=== PATIENT | male | born 1970 | race Caucasian/White ===

== ENCOUNTER 2023-10-06 15:28 | Emergency (ER) | payer SELFPAY ==
[2023-10-06 15:44] VITALS: BP 146/90; RESP 20; TEMP 97.9; O2SAT 97
--- NOTE | 2023-10-06 15:55 | ERPHSYRPT ---
- History of Present Illness Time Seen by Provider: 10/06/23 15:53 Source: patient, family Exam Limitations: no limitations Patient Subjective Stated Complaint: Allergic reaction Triage Nursing Assessment: Patient ambulated back to ED and transferred self to bed. Patient A+O X3. Patient's skin flushed, warm and dry. Patient's here with daughter and daughter states patient cannot read or write. Patient states he went to be just fine and woke up and his pola hands were swollen and pola eyes were swollen. Patient's pola arms noted to be warm, red and swollen, chest, neck and pola eyes. Patient denies pain or discomfort. Physician History: Patient's here with daughter and daughter states patient cannot read or write. Patient states he went to be just fine and woke up and his both hands were swollen and both eyes were swollen. Patient's pola arms noted to be warm, red and swollen, chest, neck and pola eyes. Patient denies pain or discomfort. Timing/Duration: today Severity: moderate Associated Symptoms: rash Allergies/Adverse Reactions: No Known Drug Allergies Allergy (Unverified 10/06/23 15:33) Hx Influenza Vaccination/Date Given: No Hx Pneumococcal Vaccination/Date Given: No Immunizations Up to Date: Yes Travel Risk - International Travel Have you traveled outside of the country in past 3 weeks: No - Emerging Infectious Disease Are you exhibiting symptoms associated with any current EIDs: No - Review of Systems Constitutional: No Fever, No Chills Eyes: Eye Redness, Itchy Ears, Nose, & Throat: No Symptoms Respiratory: No Cough, No Dyspnea Cardiac: No Chest Pain, No Edema, No Syncope Abdominal/Gastrointestinal: No Abdominal Pain, No Nausea, No Vomiting, No Diarrhea Genitourinary Symptoms: No Dysuria Musculoskeletal: No Back Pain, No Neck Pain Skin: Cellulitis (left forearm), Pruritis, Rash Neurological: No Dizziness, No Focal Weakness, No Sensory Changes Psychological: No Symptoms Endocrine: No Symptoms All Other Systems: Reviewed and Negative - Past Medical History Pertinent Past Medical History: No Neurological History: No Pertinent History ENT History: No Pertinent History Cardiac History: No Pertinent History Respiratory History: No Pertinent History Endocrine Medical History: No Pertinent History Musculoskeletal History: No Pertinent History GI Medical History: No Pertinent History History: No Pertinent History Psycho-Social History: No Pertinent History Male Reproductive Disorders: No Pertinent History - Past Surgical History Past Surgical History: No Neuro Surgical History: No Pertinent History Cardiac: No Pertinent History Respiratory: No Pertinent History Gastrointestinal: No Pertinent History Genitourinary: No Pertinent History Musculoskeletal: No Pertinent History Male Surgical History: No Pertinent History - Social History Smoking Status: Current every day smoker How long have you smoked: years Exposure to second hand smoke: No Drug Use: marijuana - Nursing Vital Signs Nursing Vital Signs: Initial Vital Signs Temperature 97.9 F 10/06/23 15:34 Pulse Rate 93 H 10/06/23 15:34 Respiratory Rate 20 10/06/23 15:34 Blood Pressure 146/90 10/06/23 15:34 O2 Sat by Pulse Oximetry 97 10/06/23 15:34 Pain Scale Pain Intensity 0 - Physical Exam General Appearance: no apparent distress, alert Eye Exam: PERRL/EOMI, eyes nml inspection Ears, Nose, Throat Exam: normal ENT inspection, TMs normal, pharynx normal, moist mucous membranes Neck Exam: normal inspection, non-tender, supple, full range of motion Respiratory Exam: wheezing, No respiratory distress Cardiovascular Exam: regular rate/rhythm, normal heart sounds, normal peripheral pulses Gastrointestinal/Abdomen Exam: soft, normal bowel sounds, No tenderness, No mass Back Exam: normal inspection, normal range of motion, No CVA tenderness, No vertebral tenderness Extremity Exam: normal inspection, normal range of motion, pelvis stable Neurologic Exam: alert, oriented x 3, cooperative, normal mood/affect, nml cerebellar function, nml station & gait, sensation nml, No motor deficits Skin Exam: normal color, warm, dry, rash Lymphatic Exam: No adenopathy SpO2: 97 - Course Nursing assessment & vital signs reviewed: Yes Ordered Tests: Active Orders 24 hr Category Date Time Status CBC W DIFF Stat Lab 10/06/23 15:55 Completed CMP Stat Lab 10/06/23 15:55 Completed Medication Summary Generic Name Dose Route Start Last Admin Trade Name Freq PRN Reason Stop Dose Admin Ceftriaxone Sodium 1 gm in 100 mls @ 200 mls/hr 10/06/23 16:05 10/06/23 16:06 Rocephin 1 Gm / 100 Ml Nacl IV 10/06/23 16:34 200 mls/hr STAT ONE 200 mls/hr Administration Discontinued Medications Generic Name Dose Route Start Last Admin Trade Name Freq PRN Reason Stop Dose Admin Ceftriaxone Sodium 1,000 mg 10/06/23 15:50 10/06/23 16:04 Ceftriaxone Sodium 1000 Mg Inj Vial IM 10/06/23 15:51 Not Given STAT ONE Methylprednisolone Sodium 0 mg 10/06/23 15:50 10/06/23 15:58 Succinate 125 mg/ Sterile IV 10/06/23 15:51 125 mg Water 2 ml STAT ONE Administration Diphenhydramine HCl 25 mg 10/06/23 15:50 10/06/23 15:57 Diphenhydramine Hcl 50 Mg/Ml Vial IV 10/06/23 15:51 25 mg STAT ONE Administration Diphenhydramine HCl Confirm 10/06/23 15:57 Diphenhydramine Hcl 50 Mg/Ml Vial Administered 10/06/23 15:58 Dose 50 mg .ROUTE .STK-MED ONE Ceftriaxone Sodium Confirm 10/06/23 16:04 Rocephin 1 Gm / 100 Ml Nacl Administered 10/06/23 16:05 Dose 1 gm in 100 mls @ ud IV .STK-MED ONE Methylprednisolone Sodium Succinate Confirm 10/06/23 15:57 Methylprednis Sod Succ 125 Mg/2 Ml Vial Administered 10/06/23 15:58 Dose 125 mg .ROUTE .STK-MED ONE Sterile Water Confirm 10/06/23 15:57 Water For Injection,Sterile 10 Ml Vial Administered 10/06/23 15:58 Dose 10 ml IJ .STK-MED ONE Lab/Rad Data: Laboratory Result Diagrams 10/06/23 15:55 10/06/23 15:55 Laboratory Results 10/06/23 10/06/23 Range/Units 15:55 15:55 WBC 11.2 H (4.0-10.5) x10^3/uL RBC 4.94 (4.1-5.6) x10^6/uL Hgb 15.6 (12.5-18.0) g/dL Hct 44.4 (42-50) % MCV 89.9 (78-100) fL MCH 31.6 (26-32) pg MCHC 35.1 (32-36) g/dL RDW 12.9 (11.5-14.0) % Plt Count 288 (150-450) x10^3/uL MPV 8.5 (7.5-11.0) fL Gran % 70.7 H (36.0-66.0) % Immature Gran % (Auto) 0.4 (0.00-0.4) % Nucleat RBC Rel Count 0.0 (0.00-0.1) % Eos # (Auto) 0.54 H (0-0.5) x10^3/uL Immature Gran # (Auto) 0.04 H (0.00-0.03) x10^3u/L Absolute Lymphs (auto) 1.96 (1.0-4.6) x10^3/uL Absolute Monos (auto) 0.71 (0.0-1.3) x10^3/uL Absolute Nucleated RBC 0.00 (0.00-0.01) x10^3u/L Lymphocytes % 17.5 L (24.0-44.0) % Monocytes % 6.3 (0.0-12.0) % Eosinophils % 4.8 (0.00-5.0) % Basophils % 0.3 (0.0-0.4) % Absolute Granulocytes 7.92 H (1.4-6.9) x10^3/uL Basophils # 0.03 (0-0.4) x10^3/uL Sodium 131 L (135-145) mmol/L Potassium 4.1 (3.5-5.1) mmol/L Chloride 99 (98-107) mmol/L Carbon Dioxide 19 L (22-30) mmol/L Anion Gap 17.2 H (5-15) MEQ/L BUN 12 (9-20) mg/dL Creatinine 0.82 (0.66-1.25) mg/dL Estimated GFR 104.4 ML/MIN Glucose 99 (74-106) mg/dL Calcium 8.7 (8.4-10.2) mg/dL Total Bilirubin 1.50 H (0.2-1.3) mg/dL AST 29 (17-59) U/L ALT 16 (0-50) U/L Alkaline Phosphatase 45 (38-126) U/L Serum Total Protein 7.8 (6.3-8.2) g/dL Albumin 4.4 (3.5-5.0) g/dL - Progress Progress: improved Counseled pt/family regarding: lab results, diagnosis, need for follow-up Medical Desision Making - Independent Historian Additional History obtained from: Family - Diagnostic Testing Diagnostic test were ordered, analyzed, and reviewed by me: Yes - Risk of complications Minimal Risk: Minimal risk of morbidity - Departure Departure Disposition: Home Clinical Impression: Allergic dermatitis, Cellulitis of forearm, left Condition: Stable Critical Care Time: No Instructions: Contact dermatitis, Contact Dermatitis (DC), Cellulitis (Skin Infection), Adult ED Additional Instructions: Discharge/Care Plan LISSETTE ALEJANDRO was seen on 10/06/23 in the Emergency Room. The patient was counseled regarding Diagnosis,Lab results, Imaging studies, need for follow up and when to return to the Emergency Room. Prescriptions given: Discharge Note I have spoken with the patient and/or caregivers. I have explained the patient's condition, diagnosis and treatment plan based on the information available to me at this time. I have answered the patient's and/or caregiver's questions and addressed any concerns. The patient and/or caregivers have as good understanding of the patient's diagnosis, condition and treatment plan as can be expected at this point. The vital signs have been stable. The patient's condition is stable and appropriate for discharge from the emergency department. The patient will pursue further outpatient evaluation with the primary care physician or other designated or consulting physician as outlined in the discharge instructions. The patient and/or caregivers are agreeable to this plan of care and follow-up instructions have been explained in detail. The patient and/or caregivers have received these instruction. The patient/and or caregivers are aware that any significant change in condition or worsening of symptoms should prompt an immediate return to this or the closest emergency department or call 911. LISSETTE ALEJANDRO was seen on 10/06/23 n the Emergency Room. At that time you were treated for an emergent condition, during your visit Laboratory, Radiology and/or other procedures may have been ordered. It is very important that you follow-up with your Primary Care Physician within the next 24-48 hours to review your Emergency Room visit and the final results of testing that was ordered. Some test results such as Urine Cultures, Blood Cultures, and other cultures if ordered will not be finalized for 24-48 hours. If you do not have a Primary Care Provider please call the medical records department at [phone] ext [phone] to obtain a copy of your results or you may sign into our patient portal to obtain these results by visiting us @ [email or web address] and completing the following steps: 1. Click on the Patient Portal link 2. Click the Patient Self Enrollment Link to complete the enrollment form and entering your 3. Once the enrollment form is completed you will receive an email with a temporary ID and password at the email address you provided. 4. Next choose a user name and password. Your user name must be at least 4 characters long and your password must be at least 4 characters long. 5. Choose a security question from the list and provide your answer to the question. If you already have signed into the Health Portal you may access your Health Care Information 24/12 by the following steps: 1. Login to our website @ [email or web address] 2. Enter your original user name and password. FAQS The [facility] Health Portal is an online tool that contains your Lab Results, Radiology Reports, Visit History, Discharge Instructions and Health Summary Lab and Radiology Results will not be available for 72 hours on the portal. The Portal is a secure site, passwords are encryted and URLs are re-written so they cannot be copied and pasted. You and authorized family members are the only ones who can access your Portal. Also there is a timeout feature that protects your information if you leave the Portal page open. If you have technical difficulty please use the Contact Us link on the page this will allow you to submit any questions you have regarding the Portal or you may contact the Medical Record Department at [phone]. Prescriptions: Cephalexin Mh 500 mg [Keflex 500 mg] 500 mg PO Q6H #40 cap Triamcinolone 0.1% Cream [Kenalog 0.1% Cream 15 gm] 1 gm TP QID #60 cm Methylprednisolone Packet [Medrol Dosepack] 4 mg PO UD #21 packet
[2023-10-06] MEDS ORDERED: solu-MEDROL ONE (15:57)
[2023-10-06] MEDS ORDERED: Sterile H2O 10 ml IJ ONE (15:57)
[2023-10-06] MEDS ORDERED: BENADRYL 50 MG/ML ONE (15:57)
[2023-10-06] MEDS: BENADRYL 50 MG/ML IV ONE (15:57)
[2023-10-06] MEDS: solu-MEDROL 125 MG, Sterile H2O 10 ml 2 ML IV ONE (15:58)
[2023-10-06 16:02] LABS: Absolute Neutrophil Ct (ANC) 7.92 x10^3/uL (1.4-6.9); BASOPHIL % 0.3 % (0.0-0.4); Basophil (Absolute #) 0.03 x10^3/uL (0-0.4); Eosinophil % 4.8 % (0.00-5.0); Eosinophil (Absolute #) 0.54 x10^3/uL (0-0.5); Hematocrit 44.4 % (42-50); Hemoglobin 15.6 g/dL (12.5-18.0); IMMATURE GRAN # 0.04 x10^3u/L (0.00-0.03); IMMATURE GRAN % 0.4 % (0.00-0.4); Lymphocyte (Absolute #) 1.96 x10^3/uL (1.0-4.6); Lymphocytes % 17.5 % (24.0-44.0); Mean Cell Volume 89.9 fL (78-100); Mean Corpuscular Hemoglobin 31.6 pg (26-32); Mean Corpuscular Hgb Concent. 35.1 g/dL (32-36); Mean Platelet Volume 8.5 fL (7.5-11.0); Monocyte (Absolute #) 0.71 x10^3/uL (0.0-1.3); Monocytes % 6.3 % (0.0-12.0); Neutrophil % 70.7 % (36.0-66.0); Platelet Count 288 x10^3/uL (150-450); Red Blood Count 4.94 x10^6/uL (4.1-5.6); Red Cell Distribution Width 12.9 % (11.5-14.0); White Blood Count 11.2 x10^3/uL (4.0-10.5)
[2023-10-06] MEDS: Rocephin 1000 MG INJ IM ONE (16:04)
[2023-10-06] MEDS ORDERED: ROCEPHIN 1 GM / 100 ML NaCl 1 GM/100 ML IVPB IV ONE (16:04)
[2023-10-06] MEDS: ROCEPHIN 1 GM / 100 ML NaCl 1 GM/100 ML IVPB IV ONE (16:06)
[2023-10-06 16:15] LABS: ALBUMIN 4.4 g/dL (3.5-5.0); ANION GAP 17.2 MEQ/L (5-15); BILIRUBIN,TOTAL 1.5 mg/dL (0.2-1.3); Calcium 8.7 mg/dL (8.4-10.2); Creatinine 1 0.82 mg/dL (0.66-1.25); EST GLOMERULAR FILTRATION RATE 104.4 ML/MIN; Potassium 4.1 mmol/L (3.5-5.1); Total Protein 7.8 g/dL (6.3-8.2)
[2023-10-06 16:41] VITALS: PULSE 90
== END 2023-10-06 17:02 | disposition home or self-care (01) ==
LOC: ED 15:28
DX: L23.9 Allergic contact dermatitis, unspecified cause (principal); L03.114 Cellulitis of left upper limb; Z79.52 Long term (current) use of systemic steroids; Z79.899 Other long term (current) drug therapy; Z72.0 Tobacco use
CPT/HCPCS: 36000; 36415; 80053; 85025; 96365; 96374; 96375; 99283; J0696; J1200; J2919

== ENCOUNTER 2024-07-09 13:02 | Emergency (ER) | payer OTHER ==
[2024-07-09 13:14] VITALS: TEMP 99.3
--- NOTE | 2024-07-09 13:25 | ERPHSYRPT ---
- History of Present Illness Time Seen by Provider: 07/09/24 13:03 Historian: patient, family Exam Limitations: no limitations Patient Subjective Stated Complaint: PT HERE FOR CHEST PAIN 2 WEEKS AGO, AND PAIN TO UNDER LEFT RIB AREA, HE STATES HE HAS BEEN RUNNING A LOW GRADE FEVER,GREEN SPUTUM. PT DOES NOT GO TO DR Triage Nursing Assessment: PT ALERT,ARRIVED PER WC RESP EASY, PRODUCTIVE COUGH,WHITE THICK SPUTUM, SKIN W/D/P. NOSE PURPLE IN COLOR, CHEST CLEAR, ABD SOFT, NO EDEMA NOTED Physician History: 54-year-old male with history of tobacco use is sent in ER from [facility] with complaints of left-sided chest pain sharp stabbing earlier which improved after taking BC powder prior to arrival. Patient is chest pain-free currently. Reports having off-and-on chest pain for the last 2 weeks. Also reports 2-week history of increasing cough productive of yellow-green sputum moderate in amount without any difficulty breathing but does feel weak fatigued and tired all the time. He has no energy to do his routine activities. Patient reports subjective feeling of fever and chills with a Tmax of 100.8 earlier today at [facility]. Patient denies any abdominal pain nausea or vomiting. Patient has not seen a physician for a while. Reports decreased oral intake and weight loss unknown amount. Aspirin Treatment Today: unknown Allergies/Adverse Reactions: No Known Drug Allergies Allergy (Verified 07/09/24 13:08) Hx Tetanus, Diphtheria Vaccination/Date Given: No Hx Influenza Vaccination/Date Given: No Hx Pneumococcal Vaccination/Date Given: No Immunizations Up to Date: Yes Travel Risk - International Travel Have you traveled outside of the country in past 3 weeks: No - Emerging Infectious Disease Are you exhibiting symptoms associated with any current EIDs: No - Review of Systems Constitutional: Fever, Chills, Fatigue, Weakness Eyes: No Symptoms Ears, Nose, & Throat: No Symptoms Respiratory: Cough, Wheezing Cardiac: Chest Pain Abdominal/Gastrointestinal: No Symptoms Genitourinary Symptoms: No Symptoms Skin: No Symptoms Neurological: No Symptoms Endocrine: No Symptoms Hematologic/Lymphatic: No Symptoms - Past Medical History Pertinent Past Medical History: No Neurological History: No Pertinent History ENT History: No Pertinent History Cardiac History: No Pertinent History Respiratory History: No Pertinent History Endocrine Medical History: No Pertinent History Musculoskeletal History: No Pertinent History GI Medical History: No Pertinent History History: No Pertinent History Psycho-Social History: No Pertinent History Male Reproductive Disorders: No Pertinent History - Past Surgical History Past Surgical History: No Neuro Surgical History: No Pertinent History Cardiac: No Pertinent History Respiratory: No Pertinent History Gastrointestinal: Hernia Repair Genitourinary: No Pertinent History Musculoskeletal: No Pertinent History Male Surgical History: No Pertinent History - Social History Smoking Status: Current every day smoker How long have you smoked: years Exposure to second hand smoke: Yes Drug Use: marijuana - Social Determinants of Health Will the patient participate in the screening: Yes Do you worry about a steady place to live?: No Do you have any problems with any of the following?: No known problems In the past 12 months,have you had to go without utilities?: No Transportation Issues: No Has anyone in your support network made you feel unsafe?: No Have you or anyone in your house had to go without enough: No - Nursing Vital Signs Nursing Vital Signs: Initial Vital Signs Pulse Rate 72 07/09/24 13:09 Pain Scale Pain Intensity 0 - Physical Exam General Appearance: no apparent distress, alert Eye Exam: PERRL/EOMI Ears, Nose, Throat Exam: normal ENT inspection, TMs normal, pharynx normal, eileen st mucous membranes Neck Exam: normal inspection, non-tender, supple, full range of motion Respiratory Exam: diminished breath sounds, crackles/rales, wheezing Cardiovascular Exam: regular rate/rhythm, normal heart sounds Gastrointestinal/Abdomen Exam: soft, normal bowel sounds, No tenderness Back Exam: normal inspection, normal range of motion Extremity Exam: normal inspection, normal range of motion Neurologic Exam: alert, oriented x 3, cooperative, sales activity manager II-XII nml as tested, sensation nml, No motor deficits SpO2 Interpretation: normal SpO2: 96 O2 Delivery: Room Air - Course EKG Interpreted by Me: RATE (60), Sinus Rhythm, NORMAL AXIS, NORMAL INTERVALS, Q-wave, Non-specific ST Changes Ordered Tests: Active Orders 24 hr Category Date Time Status CHEST 1 VIEW (PORTABLE) Stat Exams 07/09/24 13:20 Completed CHEST WITH CONTRAST [CT] Stat Exams 07/09/24 15:25 Completed BLOOD CULTURE Stat Lab 07/09/24 13:43 Received CBC W DIFF Stat Lab 07/09/24 13:30 Completed CMP Stat Lab 07/09/24 13:30 Completed D-DIMER QUANTITATIVE Stat Lab 07/09/24 13:36 Completed Lactic Acid Stat Lab 07/09/24 13:20 Completed MAGNESIUM Stat Lab 07/09/24 13:30 Completed NT PRO BNPII Stat Lab 07/09/24 13:30 Completed PROCALCITONIN Stat Lab 07/09/24 13:30 Completed TROPONIN Q4H Lab 07/09/24 13:30 Completed TROPONIN Q4H Lab 07/09/24 15:16 Completed Respiratory Therapy Assessment DAILY RT 07/09/24 13:55 Completed Medication Summary Discontinued Medications Generic Name Dose Route Start Last Admin Trade Name Darylq PRN Reason Stop Dose Admin Albuterol/Ipratropium 3 ml 07/09/24 13:20 07/09/24 13:52 Ipratropium/Albuterol Sulfate 3 Ml Ampul.Neb IH 07/09/24 13:21 3 ml STAT ONE Administration Albuterol/Ipratropium Confirm 07/09/24 13:39 Ipratropium/Albuterol Sulfate 3 Ml Ampul.Neb Administered 07/09/24 13:40 Dose 3 ml IH .STK-MED ONE Ceftriaxone Sodium 2 gm in 100 mls @ 200 mls/hr 07/09/24 14:40 07/09/24 15:56 Rocephin 2 Gm/100 Ml Nacl IV 07/09/24 15:09 Infused STAT ONE Infusion Azithromycin 500 mg in 250 mls @ 250 mls/hr 07/09/24 14:40 07/09/24 17:22 Zithromax 500 Mg/ 250 Ml Nacl Premix IV 07/09/24 15:39 Infused STAT STA Infusion Ceftriaxone Sodium Confirm 07/09/24 14:52 Rocephin 2 Gm/100 Ml Nacl Administered 07/09/24 14:53 Dose 2 gm in 100 mls @ ud IV .STK-MED ONE Azithromycin Confirm 07/09/24 15:29 Zithromax 500 Mg/ 250 Ml Nacl Premix Administered 07/09/24 15:30 Dose 500 mg in 250 mls @ ud IV .STK-MED ONE Lab/Rad Data: Laboratory Result Diagrams 07/09/24 13:30 07/09/24 13:30 Laboratory Results 07/09/24 07/09/24 07/09/24 Range/Units 15:16 13:36 13:30 WBC (4.23-9.07) x10^3/uL RBC (4.63-6.08) x10^6/uL Hgb (13.7-17.5) g/dL Hct (40.1-51.0) % MCV (79.0-92.2) fL MCH (25.7-32.2) pg MCHC (32.3-36.5) g/dL RDW (11.6-14.4) % Plt Count (163-337) x10^3/uL MPV (9.4-12.4) fL Gran % (34.0-67.9) % Immature Gran % (Auto) (0.001-0.429) % Nucleat RBC Rel Count (0.00-0.2) % Eos # (Auto) (0.04-0.54) x10^3/uL Immature Gran # (Auto) (0.001-0.031) x10^3u/L Absolute Lymphs (auto) (1.32-3.57) x10^3/uL Absolute Monos (auto) (0.30-0.82) x10^3/uL Absolute Nucleated RBC (0.00-0.012) x10^3u/L Lymphocytes % (21.8-53.1) % Monocytes % (5.3-12.2) % Eosinophils % (0.8-7.0) % Basophils % (0.2-1.2) % Absolute Granulocytes (1.78-5.38) x10^3/uL Basophils # (0.01-0.08) x10^3/uL D-Dimer 0.56 H (0.0-0.50) mg/L Sodium (135-145) mmol/L Potassium (3.5-5.1) mmol/L Chloride (98-107) mmol/L Carbon Dioxide (22-30) mmol/L Anion Gap (5-15) MEQ/L BUN (9-20) mg/dL Creatinine (0.66-1.25) mg/dL Estimated GFR ML/MIN Glucose (74-106) mg/dL Lactic Acid (0.4-2.0) Calcium (8.4-10.2) mg/dL Magnesium (1.6-2.3) mg/dL Total Bilirubin (0.2-1.3) mg/dL AST (17-59) U/L ALT (0-50) U/L Alkaline Phosphatase (38-126) U/L Troponin I < 0.012 < 0.012 (0.000-0.033) ng/mL NT-Pro-B Natriuret Pep (<300) pg/mL Serum Total Protein (6.3-8.2) g/dL Albumin (3.5-5.0) g/dL Procalcitonin (0.030-0.080) ng/mL 07/09/24 07/09/24 07/09/24 Range/Units 13:30 13:30 13:20 WBC 16.1 H (4.23-9.07) x10^3/uL RBC 3.95 L (4.63-6.08) x10^6/uL Hgb 12.4 L (13.7-17.5) g/dL Hct 35.8 L (40.1-51.0) % MCV 90.6 (79.0-92.2) fL MCH 31.4 (25.7-32.2) pg MCHC 34.6 (32.3-36.5) g/dL RDW 12.0 (11.6-14.4) % Plt Count 585 H (163-337) x10^3/uL MPV 8.1 L (9.4-12.4) fL Gran % 79.9 H (34.0-67.9) % Immature Gran % (Auto) 1.3 H (0.001-0.429) % Nucleat RBC Rel Count 0.0 (0.00-0.2) % Eos # (Auto) 0.03 L (0.04-0.54) x10^3/uL Immature Gran # (Auto) 0.21 H (0.001-0.031) x10^3u/L Absolute Lymphs (auto) 1.71 (1.32-3.57) x10^3/uL Absolute Monos (auto) 1.25 H (0.30-0.82) x10^3/uL Absolute Nucleated RBC 0.00 (0.00-0.012) x10^3u/L Lymphocytes % 10.6 L (21.8-53.1) % Monocytes % 7.8 (5.3-12.2) % Eosinophils % 0.2 L (0.8-7.0) % Basophils % 0.2 (0.2-1.2) % Absolute Granulocytes 12.84 H (1.78-5.38) x10^3/uL Basophils # 0.04 (0.01-0.08) x10^3/uL D-Dimer (0.0-0.50) mg/L Sodium 130 L (135-145) mmol/L Potassium 4.8 (3.5-5.1) mmol/L Chloride 97 L (98-107) mmol/L Carbon Dioxide 23 (22-30) mmol/L Anion Gap 14.8 (5-15) MEQ/L BUN 8 L (9-20) mg/dL Creatinine 0.69 (0.66-1.25) mg/dL Estimated GFR 109.3 ML/MIN Glucose 73 L (74-106) mg/dL Lactic Acid 1.1 (0.4-2.0) Calcium 8.4 (8.4-10.2) mg/dL Magnesium 2.0 (1.6-2.3) mg/dL Total Bilirubin 1.10 (0.2-1.3) mg/dL AST 24 (17-59) U/L ALT 22 (0-50) U/L Alkaline Phosphatase 48 (38-126) U/L Troponin I (0.000-0.033) ng/mL NT-Pro-B Natriuret Pep 180 (<300) pg/mL Serum Total Protein 6.7 (6.3-8.2) g/dL Albumin 3.5 (3.5-5.0) g/dL Procalcitonin 0.052 (0.030-0.080) ng/mL - Progress Progress: improved, re-examined Air Movement: good Progress Note: 07/09/24 17:29 54-year-old is evaluated in the ER for increasing cough congestion with left sided chest pain earlier and a fever of 100.8. Is given neb treatment, on reevaluation feeling better. EKG did not show any acute ST elevations. Workup showed white count of 16 with a normal lactate, chemistries fairly unremarkable, Does have left-sided pneumonia on chest x-ray, has positive D-dimer and CTA showed bilateral airspace disease/pneumonia but no pulmonary embolism. He is given a dose of Rocephin and Zithromax, recommended admission which patient does not want to stay in the hospital at all and would like to go home and outpatient follow-up. I believe patient has a combination of COPD exacerbation and pneumonia and less likely cardiac and has negative troponin with chest pain going off and on for 2 weeks. Although I would refer him outpatient cardiology as well. Will continue with Levaquin, albuterol and steroid to go home, discussed signs symptoms of worsening needing return to ER which patient/daughter seem understanding. Stable for discharge. Blood Culture(s) Obtained: Yes Antibiotics given: Yes Counseled pt/family regarding: lab results, diagnosis, need for follow-up, rad results, smoking cessation Medical Desision Making - Independent Historian Additional History obtained from: Child - Diagnostic Testing Diagnostic test were ordered, analyzed, and reviewed by me: Yes Radiological Interpretation: Reviewed by me - Risk of complications The pt has a mod risk of morbidity or mortality based on: Need for prescription drug management - Departure Departure Disposition: Home Clinical Impression: Pneumonia, COPD with exacerbation Condition: Stable Critical Care Time: No Referrals: DOCTOR,NO FAMILY [Primary Care Provider] - Follow up with PCP 1 day IAN GABRIEL [CONSULTING PHYSICIAN] - Follow up/PCP as directed (Call for reevaluation appointment) Instructions: Chronic Obstructive Pulmonary Disease, Pneumonia, Adult (DC), Angina (DC) Additional Instructions: take Tylenol/ibuprofen as needed for aches and pains/fever chills. Follow-up with primary care for reevaluation.. DuoNeb every 4-6 hours as needed. Return to ER for worsening difficulty breathing, persistent high-grade fever chills etc. Prescriptions: Albuterol Sulfate [Albuterol Sulfate Hfa] 8.5 gm IH Q6H PRN 14 Days #1 inh PRN Reason: Cough Prednisone 20 mg [Deltasone 20 mg] 60 mg PO DAILY 5 Days #15 tablet Albuterol/Ipratropium 3ml Neb* [DUONEB 0.5-3 MG/3 ml Neb] 3 ml IH Q4-6HPRN PRN 14 Days #60 amp PRN Reason: Shortness Of Breath/Wheezing Levofloxacin [Levaquin 500 MG Tablet] 500 mg PO DAILY #10 tablet
[2024-07-09] MEDS ORDERED: DUONEB 0.5-3 MG/3 ml Neb IH ONE (13:39)
--- NOTE | 2024-07-09 13:41 | XRAY ---
Indication: Chest pain. Comparison: None Portable chest hyperinflated with left lower lobe airspace disease without consolidation/large effusion. Remaining heart and lungs unremarkable. Bony thorax intact.
[2024-07-09 13:47] LABS: Absolute Neutrophil Ct (ANC) 12.84 x10^3/uL (1.78-5.38); BASOPHIL % 0.2 % (0.2-1.2); Basophil (Absolute #) 0.04 x10^3/uL (0.01-0.08); Eosinophil % 0.2 % (0.8-7.0); Eosinophil (Absolute #) 0.03 x10^3/uL (0.04-0.54); Hematocrit 35.8 % (40.1-51.0); Hemoglobin 12.4 g/dL (13.7-17.5); IMMATURE GRAN # 0.21 x10^3u/L (0.001-0.031); IMMATURE GRAN % 1.3 % (0.001-0.429); Lymphocyte (Absolute #) 1.71 x10^3/uL (1.32-3.57); Lymphocytes % 10.6 % (21.8-53.1); Mean Cell Volume 90.6 fL (79.0-92.2); Mean Corpuscular Hemoglobin 31.4 pg (25.7-32.2); Mean Corpuscular Hgb Concent. 34.6 g/dL (32.3-36.5); Mean Platelet Volume 8.1 fL (9.4-12.4); Monocyte (Absolute #) 1.25 x10^3/uL (0.30-0.82); Monocytes % 7.8 % (5.3-12.2); Neutrophil % 79.9 % (34.0-67.9); Platelet Count 585 x10^3/uL (163-337); Red Blood Count 3.95 x10^6/uL (4.63-6.08); White Blood Count 16.1 x10^3/uL (4.23-9.07)
[2024-07-09] MEDS: DUONEB 0.5-3 MG/3 ml Neb IH ONE (13:52)
[2024-07-09 14:19] LABS: ALBUMIN 3.5 g/dL (3.5-5.0); ANION GAP 14.8 MEQ/L (5-15); BILIRUBIN,TOTAL 1.1 mg/dL (0.2-1.3); Calcium 8.4 mg/dL (8.4-10.2); Creatinine 1 0.69 mg/dL (0.66-1.25); EST GLOMERULAR FILTRATION RATE 109.3 ML/MIN; PROCALCITONIN 0.052 ng/mL (0.030-0.080); Potassium 4.8 mmol/L (3.5-5.1); Total Protein 6.7 g/dL (6.3-8.2)
[2024-07-09] MEDS ORDERED: ROCEPHIN 2 GM/100 ML NACL 2 GM/100 ML IVPB IV ONE (14:52)
[2024-07-09] MEDS: ROCEPHIN 2 GM/100 ML NACL 2 GM/100 ML IVPB IV ONE (14:55)
[2024-07-09 15:01] VITALS: RESP 26
[2024-07-09] MEDS ORDERED: Zithromax 500 MG/ 250 ML NaCl Premix 500 MG/250 ML IVPB IV ONE (15:29)
[2024-07-09] MEDS: Zithromax 500 MG/ 250 ML NaCl Premix 500 MG/250 ML IVPB IV STA (15:37)
--- NOTE | 2024-07-09 16:43 | XRAY ---
Indication: Chest pain. Short of breath. Pulmonary elbows. Multiple contiguous axial images obtained through the chest using 80 cc Isovue 370 contrast and PE protocol. Comparison: None Good opacification pulmonary arteries including lobar and segmental branches. No pulmonary embolus. Heart not enlarged. Aorta is normal in course and caliber. No pathologic mediastinal/hilar lymphadenopathy. Lungs demonstrates diffuse left lower lobe consolidating/nonconsolidating airspace disease. Lesser degree in right lower lobe and both mid lung. No effusion. Bony thorax intact. Limited upper abdomen unremarkable. Impression: Negative pulmonary embolus. Bilateral mid to lower lung airspace disease greatest left lower lobe.
[2024-07-09 17:21] VITALS: BP 113/70; PULSE 84
[2024-07-09 17:32] VITALS: O2SAT 96
== END 2024-07-09 17:36 | disposition home or self-care (01) ==
LOC: ED 13:02
DX: J18.9 Pneumonia, unspecified organism (principal); J44.1 Chronic obstructive pulmonary disease with (acute) exacerbation; R07.9 Chest pain, unspecified; R05.1 Acute cough; R53.83 Other fatigue; Z79.52 Long term (current) use of systemic steroids; Z79.899 Other long term (current) drug therapy; Z72.0 Tobacco use
CPT/HCPCS: 36415; 71045; 71260; 80053; 83605; 83735; 83880; 84145; 84484; 85025; 85379; 87040; 94640; 96365; 96367; 99284; 99285; J0456; J0696; A9270-GY